=== PATIENT | female | born 1985 | race African-American/Black ===

== ENCOUNTER 2019-05-29 09:12 | Emergency (ER) | payer SELFPAY ==
[2019-05-29] MEDS ORDERED: NORMAL SALINE 1000 ML 1,000 ML IV ONE ×2 (09:44→14:44)
[2019-05-29] MEDS ORDERED: ONDANSETRON HCL INJ/PF 4 MG/2 ML SDV IV ONE ×2 (09:44→12:37)
--- NOTE | 2019-05-29 09:45 | ER Document Report ---
ED Medical Screen (RME) - General Chief Complaint: Abdominal Pain Stated Complaint: NAUSEA Time Seen by Provider: 05/29/19 09:43 Mode of Arrival: Ambulatory Information source: Patient Notes: 34-year-old female presents to ED for complaint of nausea vomiting and abdominal pain. She states she sees some blood on the paper when she wipes after she has a bowel movement. She states she has a history of 5 C-sections appendectomy laparoscopy and umbilical hernia x3 the last time with mesh and multiple bowel resections due to bowel obstructions. She is alert oriented respirations regular and unlabored speaking in full sentences walks with a even steady gait. She states she is having bowel movements but they are not diarrhea or constipation. She states she vomited 3 times yesterday but has not vomited today yet. She states she is not sexually active. I have greeted and performed a rapid initial assessment of this patient. A comprehensive ED assessment and evaluation of the patient, analysis of test results and completion of medical decision making process will be conducted by an additional ED providers. Dictation of this chart was performed using voice recognition software; therefore, there may be some unintended grammatical errors. TRAVEL OUTSIDE OF THE [place] IN LAST 30 DAYS: No - Related Data Allergies/Adverse Reactions: amoxicillin Allergy (Verified 05/29/19 09:16) cephalexin [From Keflex] Allergy (Verified 05/29/19 09:16) dicyclomine [From Bentyl] Allergy (Verified 05/29/19 09:16) vancomycin Allergy (Verified 05/29/19 09:16) Bactrim Allergy (Uncoded 05/29/19 09:16) Demerol Allergy (Uncoded 05/29/19 09:16) Nsaids Allergy (Uncoded 05/29/19 09:16) Physical Exam - Vital signs Vitals: Temp Pulse Resp BP Pulse Ox 97.5 F 68 16 119/73 98 05/29/19 09:20 05/29/19 09:20 05/29/19 09:20 05/29/19 09:20 05/29/19 09:20 Course - Vital Signs Vital signs: Temp Pulse Resp BP Pulse Ox 97.5 F 68 16 119/73 98 05/29/19 09:20 05/29/19 09:20 05/29/19 09:20 05/29/19 09:20 05/29/19 09:20
[2019-05-29 10:32] LABS: ABSOLUTE EOSINOPHILS # (AUTO) 0.1 10^3/uL (0.0-0.6); ABSOLUTE LYMPHOCYTES (AUTO) 1.9 10^3/uL (0.5-4.7); ABSOLUTE MONOCYTES (AUTO) 0.3 10^3/uL (0.1-1.4); ABSOLUTE NEUT (AUTO) 1.1 10^3/uL (1.7-8.2); BASOPHILS % (AUTO) 0.7 % (0-2); EOSINOPHILS % (AUTO) 3.3 % (0-6); HEMATOCRIT 39.1 % (36.0-47.0); HEMOGLOBIN 12.9 g/dL (12.0-15.5); LYMPHOCYTES % (AUTO) 55.7 % (13-45); MEAN CORPUSCULAR HEMOGLOBIN 27.5 pg (27.0-33.4); MEAN CORPUSCULAR VOLUME 83 fl (80-97); MONOCYTES % (AUTO) 9.3 % (3-13); PLATELET COUNT 241 10^3/uL (150-450); RED BLOOD COUNT 4.69 10^6/uL (3.72-5.28); RED CELL DISTRIBUTION WIDTH 15.3 % (11.5-14.0); TOTAL CELLS COUNTED % (AUTO) 100 %; WHITE BLOOD COUNT 3.4 10^3/uL (4.0-10.5)
[2019-05-29 10:43] LABS: APPEARANCE,URINE SLIGHTLY-CLOUDY; BILIRUBIN,URINE NEGATIVE (NEGATIVE); COLOR,URINE YELLOW; GLUCOSE, URINE NEGATIVE (NEGATIVE); KETONES,URINE NEGATIVE (NEGATIVE); LEUKOCYTE ESTERASE,URINE NEGATIVE (NEGATIVE); NITRITE,URINE NEGATIVE (NEGATIVE); PROTEIN,URINE 100 mg/dL (NEGATIVE); URINE SPECIFIC GRAVITY 1.045; UROBILINOGEN,URINE NEGATIVE mg/dL (<2.0)
[2019-05-29 11:00] LABS: ALANINE AMINOTRANSFERASE 32 U/L (9-52); ALBUMIN 4.7 g/dL (3.5-5.0); ALKALINE PHOSPHATASE 55 U/L (38-126); ANION GAP 9 (5-19); ASPARTATE AMINO TRANSFERASE 37 U/L (14-36); BILIRUBIN,DIRECT 0.3 mg/dL (0.0-0.4); BILIRUBIN,TOTAL 0.8 mg/dL (0.2-1.3); BLOOD UREA NITROGEN 17 mg/dL (7-20); CALCIUM 9.4 mg/dL (8.4-10.2); CARBON DIOXIDE 26 mmol/L (22-30); CHLORIDE 104 mmol/L (98-107); GLUCOSE 84 mg/dL (75-110); LIPASE 72.2 U/L (23-300); POTASSIUM 4.4 mmol/L (3.6-5.0); SODIUM 139.3 mmol/L (137-145); TOTAL PROTEIN 8.6 g/dL (6.3-8.2)
--- NOTE | 2019-05-29 13:08 | RADIOLOGY REPORT (SQ) ---
EXAM DESCRIPTION: ACUTE ABDOMEN SERIES COMPLETED DATE/TIME: 05/29/2019 12:58 pm REASON FOR STUDY: Abd pain w/ nausea,R hemicolectomy, multi-surges COMPARISON: None. NUMBER OF VIEWS: Three views. TECHNIQUE: Frontal chest, supine abdomen and upright/decubitus abdomen radiographic images acquired. LIMITATIONS: None. FINDINGS: CHEST: Lungs clear of infiltrates. FREE AIR: None. No abnormal gas collections. BOWEL GAS PATTERN: Nonobstructive pattern. No dilated loops or air fluid levels. CALCIFICATIONS: No suspicious calcifications. HARDWARE: IUD. SOFT TISSUES: No gross mass or suggestion of organomegaly. BONES: No acute fracture. No worrisome bone lesions. OTHER: No other significant finding. IMPRESSION: NO RADIOGRAPHIC EVIDENCE FOR ACUTE ABDOMINAL DISEASE. TECHNICAL DOCUMENTATION: JOB ID: [id number] [employer]- All Rights Reserved Reading location - IP/workstation name: [email or web address]
--- NOTE | 2019-05-29 13:40 | ER Document Report ---
Entered by SAUMYA RAWLS SCRIBE 05/29/19 1237 Acting as scribe for:SAMUEL BRADFORD MD ED General - General Chief Complaint: Abdominal Pain Stated Complaint: NAUSEA Time Seen by Provider: 05/29/19 09:43 Mode of Arrival: Ambulatory Notes: Patient is a 34-year-old female presenting to the emergency department complaining of abdominal pain. Patient states that her pain began yesterday and today she could not continue working outside due to the severity and having constant spasms. Patient states that last night she began vomiting and noticed that she was vomiting blood. Patient also states that she noticed blood in her stool. 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 TRAVEL OUTSIDE OF THE [place] IN LAST 30 DAYS: No - Related Data Allergies/Adverse Reactions: amoxicillin Allergy (Verified 05/29/19 09:16) cephalexin [From Keflex] Allergy (Verified 05/29/19 09:16) dicyclomine [From Bentyl] Allergy (Verified 05/29/19 09:16) vancomycin Allergy (Verified 05/29/19 09:16) Bactrim Allergy (Uncoded 05/29/19 09:16) Demerol Allergy (Uncoded 05/29/19 09:16) Nsaids Allergy (Uncoded 05/29/19 09:16) Past Medical History - General Information source: Patient - Social History Smoking Status: Unknown if Ever Smoked Cigarette use (# per day): No Chew tobacco use (# tins/day): No Frequency of alcohol use: None Drug Abuse: None Family History: Reviewed & Not Pertinent Patient has suicidal ideation: No Patient has homicidal ideation: No GI Medical History: Reports: Other - 4 bowel obstructions Past Surgical History: Reports: Hx Abdominal Surgery - umbilical hernia, bowel resection x 2, Hx Section - 5, Hx Colostomy - 2018, Other - Right john- colectomy Review of Systems - Review of Systems Constitutional: No symptoms reported EENT: No symptoms reported Cardiovascular: No symptoms reported Respiratory: No symptoms reported Gastrointestinal: See HPI, Abdominal pain, Vomiting, Blood streaked bowels, Blood in vomit Genitourinary: No symptoms reported Female Genitourinary: Last menstrual period - Mirena IUD Musculoskeletal: No symptoms reported Skin: No symptoms reported Hematologic/Lymphatic: No symptoms reported Neurological/Psychological: No symptoms reported -: Yes All other systems reviewed and negative Physical Exam - Vital signs Vitals: Temp Pulse Resp BP Pulse Ox 97.5 F 68 16 119/73 98 05/29/19 09:20 05/29/19 09:20 05/29/19 09:20 05/29/19 09:20 05/29/19 09:20 - Notes Notes: Physical Exam: General: Alert, appears well. HEENT: Normocephalic. Atraumatic. PERRL. Extraocular movements intact. Oropharynx clear. Neck: Supple. Non-tender. Respiratory: No respiratory distress. Clear and equal breath sounds bilaterally. Cardiovascular: Regular rate and rhythm. Abdominal: Abdominal scars. Right side of abdomen in the mid to lower area is tenderness to palpation. It is worse in the light right lower quadrant near the hernia. No distension. Normal Bowel Sounds. Back: Non-tender. No deformity or step off. Extremities: Moves all four extremities. Upper extremities: Normal inspection. Normal ROM. Lower extremities: Normal inspection. No edema. Normal ROM. Neurological: Normal cognition. AAOx4. Normal speech. Psychological: Normal affect. Normal Mood. Skin: Warm. Dry. Normal color. Course - Re-evaluation Re-evalutation: 05/29/19 14:37 After reviewing all the negative findings with the patient, and the x-ray showing a large amount of stool in the rectosigmoid region. She states her last bowel movement was yesterday. She does have problems with constipation. She does not take anything to help with constipation. She is requesting that she get some Zofran for nausea and Protonix for heartburn. I told her that Prilosec OTC is much cheaper and would be just as effective. She will be given a prescription for some Zofran. She also began asking questions about her Mirena IUD, why she has not had a period in such a long time and other unrelated issues. She reports that she did have a CT scan of the abdomen in March that was unremarkable. She is also asking for a note for work since she had to leave the work crew due to her abdominal cramping discomfort. 05/29/19 14:58 The nurse does inform me the patient stated she must leave because she has to get to home prison by 5 PM. Apparently her director social welfare have made arrangements for her to check into the homeless prison [facility], and then get hooked up with resources tomorrow morning to help her get back to [place]. I did add a CK to her previous blood work ordered at triage due to the very high specific gravity of the urine with the rest of the lab work being normal, on outside chance that she had suffered a heat type injury working outdoors. We have offered her a fleets enema and IV fluids, but she told the nurse that she needs to leave to be at home with prison before 5:00 so the decision will be left up to the patient. - Vital Signs Vital signs: Temp Pulse Resp BP Pulse Ox 97.5 F 68 16 119/73 98 05/29/19 09:20 05/29/19 09:20 05/29/19 09:20 05/29/19 09:20 05/29/19 09:20 - Laboratory Result Diagrams: 05/29/19 10:18 05/29/19 10:18 Laboratory results interpreted by me: 05/29/19 05/29/19 05/29/19 10:18 10:18 10:18 WBC 3.4 L RDW 15.3 H Seg Neutrophils % 31.0 L Lymphocytes % 55.7 H Absolute Neutrophils 1.1 L AST 37 H Total Protein 8.6 H Urine Protein 100 H Urine Blood MODERATE H - Diagnostic Test Radiology reviewed: Image reviewed, Reports reviewed - Acute abdominal series does not show any acute process. She has had a right hemicolectomy. There is a large amount of stool in the rectosigmoid region. There is no sign of obstruction. Discharge - Discharge Clinical Impression: Abdominal pain Qualifiers: Abdominal location: right lower quadrant Qualified Code(s): R10.31 - Right lower quadrant pain Constipation Qualifiers: Constipation type: unspecified constipation type Qualified Code(s): K59.00 - Constipation, unspecified Condition: Stable Disposition: HOME, SELF-CARE Additional Instructions: Abdominal Pain: There are many causes of abdominal pain. Pain can mean a serious problem requiring surgery (such as appendicitis). It can also be an innocent problem that goes away on its own (such as a viral infection). Often, time must pass to determine the cause of pain. The physician does not feel that hospitalization is necessary, at present. Things may change within the next 24 hours. Call the doctor or come back for re- examination if any problems occur, such as: (1) Pain that becomes more severe, steady, or becomes concentrated in one specific area. Also, pain that is more severe with movement or coughing. (2) Vomiting that persists or becomes more frequent. (3) Blood in the vomitus, urine, or bowel movements. Blood in the stool may have a tarry or black appearance. (4) Shaking chills or fever greater than 100 degrees F. (5) The abdomen becomes more distended or swollen. (6) Bowel movements cease. (7) Failure to improve as expected. Constipation: Constipation is a common problem. It is especially likely as you get older. Constipation is a common cause of abdominal pain, but sometimes causes no symptoms at all. Causes of constipation include certain medications, dehydration, diets, inactivity, and low-fiber intake. Rarely, it can be a sympt om of underlying disease. The physician has evaluated you for this. Avoid constipation by eating a diet high in fiber, fruits, and vegetables. Drink plenty of liquids. Get regular exercise. If possible, avoid constipating medicines like narcotic pain medication. Some vitamin tablets can cause constipation. Stool softeners may be needed for difficult cases. An excellent stool softener is Konsyl which is available at [employer], [employer] [facility]. Just add a teaspoon to a glass of pineapple or orange juice daily or twice a day if needed. Laxatives are useful for occasional constipation. You should use them only when necessary. Too-frequent use can make your bowels dependent on them. Some over the counter laxatives available without prescription are: Milk of Magnesia, 1-2 tablespoons twice a day Dulcolax, 5 mg pill or 10 mg suppository. Citrate of Magnesia, 4-5 ounces a day for a day or two For acute constipation, Fleet's Enemas and Dulcolax suppositories are helpful. Chronic, group home use of laxatives or enemas is not a good idea. Your bowel may become dependant on them. You do not need to have a bowel movement every day. Many people do fine with a bowel movement every three or four days. You should call your doctor or return for re-evaluation if you pass blood in the stool, or if you develop fever or increasing abdominal pain. The abdominal pain you are having may be related to your chronic abdominal pain, may be caused by the amount of stool in your lower colon that needs to be evacuated. You should take MiraLAX on a daily basis to keep your bowels moving well. For today drink plenty of fluids and get plenty of rest. Take the Zofran for nausea if needed. Start taking Prilosec OTC for reflux and/or heartburn if needed. Follow-up with a local medical doctor to manage her medical problems. Follow-up with a local miniature set constructor to manage your ongoing abdominal pain and other abdominal issues. RETURN TO THE EMERGENCY ROOM IF ANY NEW OR WORSENING SYMPTOMS. Prescriptions: Ondansetron [Zofran Odt 4 mg Tablet] 1 - 2 tab PO Q4H #15 tab.rapdis Forms: Return to Work Scribe Attestation: 05/29/19 14:42 I personally performed the services described in the documentation, reviewed and edited the documentation which was dictated to the scribe in my presence, and it accurately records my words and actions. I personally performed the services described in the documentation, reviewed and edited the documentation which was dictated to the scribe in my presence, and it accurately records my words and actions.
[2019-05-29] MEDS ORDERED: MINERAL OIL ENEMA 133 ML PR ONE (14:04)
[2019-05-29] MEDS ORDERED: ONDANSETRON ODT 4 MG TAB (6 TAB/ER DISP) PO PRN (15:05)
[2019-05-29 15:07] LABS: CREATINE KINASE 190 U/L (30-135)
[2019-05-29 15:24] VITALS: BP 114/76
== END 2019-05-29 15:24 | disposition home or self-care (01) ==
LOC: ER 09:12
DX: R10.31 Right lower quadrant pain (principal); K59.00 Constipation, unspecified; R11.2 Nausea with vomiting, unspecified; Z88.3 Allergy status to other anti-infective agents; Z88.0 Allergy status to penicillin; Z97.5 Presence of (intrauterine) contraceptive device
CPT/HCPCS: 99284; 96361; 96374; 36415; 82550; 83690; 84703; 85025; 80053; 81001; 74022; J3490; J2405; J7030